=== PATIENT | male | born 1945 | race Caucasian/White ===

== ENCOUNTER 2023-03-19 11:06 | Inpatient (IN) | payer MEDICARE, SELFPAY ==
[2023-03-19 12:21] LABS: #Eosinphils 0.1 thou/uL (0.0-0.7); #Monocytes 0.7 thou/uL (0.11-0.59); #Neutrophils 3.6 thou/uL (1.40-6.50); %Basophils 0.3 % (0.0-1.0); %Eosinophils 2.2 % (0.0-10.0); %Lymphocytes 25.9 % (21.0-51.0); %Neutrophils 60.3 % (42.0-75.0); Hemoglobin 14.1 g/dL (14.0-18.0); Mean Corpuscular HGB CONC 31.5 g/dL (32.0-36.0); Mean Corpuscular Hemoglobin 29.9 pg (27.0-31.0); Mean Corpuscular Volume 94.9 fl (78.0-98.0); Mean Platelet Volume 10.3 fL (7.4-10.4); Platelet Count 106 10x3/uL (130-400); RBC Distribution Width 15.4 % (11.5-14.5); Red Blood Cell (RBC) Count 4.71 mill/uL (4.70-6.10)
[2023-03-19 12:32] LABS: INR-International Normal Ratio 1.2
[2023-03-19 12:40] LABS: ALT (SGPT) 13 U/L (8-55); AST (SGOT) 15 U/L (5-34); Albumin 3.7 g/dL (3.4-4.8); Alkaline Phosphatase 92 U/L (40-110); Anion Gap 14 mmol/L (10-20); BUN (Urea Nitrogen) 26 mg/dL (8.4-25.7); Bilirubin, Total 0.4 mg/dL (0.2-1.2); Calc. Creatinine Clearance 0 mL/min (70-130); Carbon Dioxide 20 mmol/L (23-31); Chloride 108 mmol/L (98-107); Estimated GFR 30; Globulin 2.4 g/dL (2.4-3.5); Glucose 116 mg/dL (83-110); Potassium 4.6 mmol/L (3.5-5.1); Protein, Total 6.1 g/dL (5.8-8.1); Sodium 137 mmol/L (136-145)
[2023-03-19 12:46] LABS: Anisocytosis SLIGHT = 6-15 cells HPF (0-5); Burr Cells SLIGHT = 2-5 cells HPF (0-1); Large Platelets 2.9 % (0-5); Macrocytosis SLIGHT = 6-15 cells HPF (0-5); Platelet Adequacy Comment Platelets Decreased; Poikilocytosis MARKED = >30 cells HPF (0-5)
[2023-03-19] MEDS ORDERED: Iopamidol-370 76% 500 ML MDV (1 ML CHARGE) ONE (13:23)
[2023-03-19] MEDS ORDERED: Sodium Chloride 0.9% 1,000 ML IV SCH (14:30)
[2023-03-19] MEDS: Apixaban 2.5 MG TAB PO SCH (23:35)
[2023-03-19] MEDS: Atorvastatin Calcium 40 MG TAB PO SCH (23:36)
[2023-03-20 02:16] VITALS: BMI 23.9
[2023-03-20 05:33] LABS: #Eosinphils 0.2 thou/uL (0.0-0.7); #Monocytes 0.8 thou/uL (0.11-0.59); #Neutrophils 6.1 thou/uL (1.40-6.50); %Basophils 0.2 % (0.0-1.0); %Eosinophils 2.3 % (0.0-10.0); %Lymphocytes 17.5 % (21.0-51.0); %Monocytes 9.6 % (0.0-10.0); %Neutrophils 70.1 % (42.0-75.0); Hemoglobin 14.7 g/dL (14.0-18.0); Mean Corpuscular HGB CONC 32.6 g/dL (32.0-36.0); Mean Corpuscular Hemoglobin 29.8 pg (27.0-31.0); Mean Platelet Volume 10.4 fL (7.4-10.4); RBC Distribution Width 15.3 % (11.5-14.5); Red Blood Cell (RBC) Count 4.94 mill/uL (4.70-6.10); White Blood Cell (WBC) Count 8.8 10x3/uL (4.8-10.8)
[2023-03-20 06:01] LABS: ALT (SGPT) 13 U/L (8-55); AST (SGOT) 17 U/L (5-34); Albumin 3.9 g/dL (3.4-4.8); Alkaline Phosphatase 96 U/L (40-110); Anion Gap 13 mmol/L (10-20); BUN (Urea Nitrogen) 20 mg/dL (8.4-25.7); Bilirubin, Total 0.6 mg/dL (0.2-1.2); Calc. Creatinine Clearance 37 mL/min (70-130); Calcium 8.9 mg/dL (7.8-10.44); Carbon Dioxide 18 mmol/L (23-31); Cardiac Risk 5.6 (Less than 4.5); Chloride 110 mmol/L (98-107); Cholesterol 157 mg/dl (< 200 Desired); Estimated GFR 38; Globulin 2.6 g/dL (2.4-3.5); Glucose 93 mg/dL (83-110); HDL Cholesterol 28 mg/dL (>60 Neg Risk); LDL Cholesterol, Calculated 102 mg/dL; Potassium 4.2 mmol/L (3.5-5.1); Protein, Total 6.5 g/dL (5.8-8.1); Sodium 137 mmol/L (136-145); Triglycerides 137 mg/dL (Less than 150)
[2023-03-20 06:26] LABS: Mean Corpuscular Volume 91.3 fl (78.0-98.0); Platelet Count 102 10x3/uL (130-400)
[2023-03-20] MEDS ORDERED: Ondansetron PF 4 MG/2 ML Vial IVP PRN (11:27)
[2023-03-20] MEDS: Aspirin 81 mg Enteric Coated Tablet PO SCH (12:53)
[2023-03-20] MEDS: Apixaban 2.5 MG TAB PO SCH ×2 (12:55→19:53)
[2023-03-20] MEDS: Lactated Ringer's 1,000 ML IV SCH (14:44)
[2023-03-20 16:12] LABS: Troponin I 0.038 ng/mL (< 0.028)
[2023-03-20] MEDS: Atorvastatin Calcium 40 MG TAB PO SCH (19:53)
[2023-03-21] MEDS: Lactated Ringer's 1,000 ML IV SCH ×2 (04:46→20:46)
[2023-03-21 05:04] LABS: #Eosinphils 0.1 thou/uL (0.0-0.7); #Neutrophils 5.8 thou/uL (1.40-6.50); %Basophils 0.2 % (0.0-1.0); %Eosinophils 0.8 % (0.0-10.0); %Lymphocytes 20.4 % (21.0-51.0); %Neutrophils 67.4 % (42.0-75.0); Mean Corpuscular HGB CONC 32.1 g/dL (32.0-36.0); Mean Corpuscular Hemoglobin 29.4 pg (27.0-31.0); Mean Corpuscular Volume 91.6 fl (78.0-98.0); Mean Platelet Volume 10.4 fL (7.4-10.4); Platelet Count 103 10x3/uL (130-400); Red Blood Cell (RBC) Count 5.11 mill/uL (4.70-6.10); White Blood Cell (WBC) Count 8.7 10x3/uL (4.8-10.8)
[2023-03-21 05:27] LABS: Anion Gap 15 mmol/L (10-20); BUN (Urea Nitrogen) 19 mg/dL (8.4-25.7); Calc. Creatinine Clearance 39 mL/min (70-130); Calcium 8.8 mg/dL (7.8-10.44); Carbon Dioxide 19 mmol/L (23-31); Chloride 108 mmol/L (98-107); Estimated GFR 39; Glucose 82 mg/dL (83-110); Magnesium 1.8 mg/dL (1.6-2.6); Potassium 4.3 mmol/L (3.5-5.1); Sodium 138 mmol/L (136-145)
[2023-03-21] MEDS: Apixaban 2.5 MG TAB PO SCH ×2 (12:24→20:43)
[2023-03-21] MEDS: Aspirin 81 mg Enteric Coated Tablet PO SCH (12:25)
[2023-03-21] MEDS: Atorvastatin Calcium 40 MG TAB PO SCH (20:44)
[2023-03-22] MEDS: Scopolamine 1.5 mg/72 hour Patch TOP SCH (04:23)
[2023-03-22 05:00] LABS: #Eosinphils 0.1 thou/uL (0.0-0.7); #Neutrophils 6.1 thou/uL (1.40-6.50); %Basophils 0.3 % (0.0-1.0); %Eosinophils 0.6 % (0.0-10.0); %Lymphocytes 18.3 % (21.0-51.0); %Monocytes 11.3 % (0.0-10.0); %Neutrophils 69.2 % (42.0-75.0); Hemoglobin 15.7 g/dL (14.0-18.0); Mean Corpuscular HGB CONC 32.3 g/dL (32.0-36.0); Mean Corpuscular Hemoglobin 29.8 pg (27.0-31.0); Mean Corpuscular Volume 92.2 fl (78.0-98.0); Mean Platelet Volume 10.6 fL (7.4-10.4); Red Blood Cell (RBC) Count 5.27 mill/uL (4.70-6.10); White Blood Cell (WBC) Count 8.8 10x3/uL (4.8-10.8)
[2023-03-22 05:16] LABS: Platelet Count 114 10x3/uL (130-400)
[2023-03-22 05:23] LABS: Anion Gap 18 mmol/L (10-20); BUN (Urea Nitrogen) 23 mg/dL (8.4-25.7); Calc. Creatinine Clearance 43 mL/min (70-130); Carbon Dioxide 17 mmol/L (23-31); Chloride 107 mmol/L (98-107); Estimated GFR 45; Glucose 75 mg/dL (83-110); Potassium 4.3 mmol/L (3.5-5.1); Sodium 138 mmol/L (136-145)
[2023-03-22] MEDS: Apixaban 2.5 MG TAB PO SCH (08:45)
[2023-03-22] MEDS: Aspirin 81 mg Enteric Coated Tablet PO SCH (08:46)
[2023-03-22] MEDS: Lactated Ringer's 1,000 ML IV SCH (10:47)
[2023-03-22] MEDS: Atorvastatin Calcium 40 MG TAB PO SCH (21:31)
[2023-03-23] MEDS: Lactated Ringer's 1,000 ML IV SCH (00:17)
[2023-03-23 05:42] LABS: #Monocytes 1.2 thou/uL (0.11-0.59); #Neutrophils 6.4 thou/uL (1.40-6.50); %Basophils 0.2 % (0.0-1.0); %Eosinophils 0.4 % (0.0-10.0); %Lymphocytes 18.8 % (21.0-51.0); %Neutrophils 67.3 % (42.0-75.0); Hemoglobin 15.5 g/dL (14.0-18.0); Mean Corpuscular HGB CONC 32.6 g/dL (32.0-36.0); Mean Corpuscular Hemoglobin 29.7 pg (27.0-31.0); Mean Platelet Volume 10.5 fL (7.4-10.4); Platelet Count 111 10x3/uL (130-400); RBC Distribution Width 14.7 % (11.5-14.5); Red Blood Cell (RBC) Count 5.22 mill/uL (4.70-6.10); White Blood Cell (WBC) Count 9.5 10x3/uL (4.8-10.8)
[2023-03-23 06:12] LABS: Anion Gap 19 mmol/L (10-20); BUN (Urea Nitrogen) 27 mg/dL (8.4-25.7); Calc. Creatinine Clearance 43 mL/min (70-130); Calcium 8.6 mg/dL (7.8-10.44); Carbon Dioxide 15 mmol/L (23-31); Chloride 107 mmol/L (98-107); Estimated GFR 45; Glucose 76 mg/dL (83-110); Potassium 4.3 mmol/L (3.5-5.1); Sodium 137 mmol/L (136-145)
[2023-03-23] MEDS ORDERED: Sodium Bicarbonate 100 MEQ in Dextrose 5% in Water 1,000 ML IV SCH (08:30)
[2023-03-23] MEDS: Aspirin 81 mg Enteric Coated Tablet PO SCH (09:31)
[2023-03-23] MEDS ORDERED: Sodium Chloride 0.9% 100 ML ONE (11:19)
[2023-03-23] MEDS ORDERED: CEFAZOLIN 2 GM VIAL ONE (11:19)
[2023-03-23] MEDS ORDERED: Iopamidol-370 76% 500 ML MDV (1 ML CHARGE) ONE (11:27)
[2023-03-23] MEDS ORDERED: Lidocaine 1% PF 5 ML VIAL ONE (11:29)
[2023-03-23] MEDS ORDERED: PROPOFOL 200 MG/20 ML VIAL ONE (11:29)
[2023-03-23] MEDS ORDERED: Ondansetron HCl/PF 4 MG/2 ML Vial IVP PRN (12:05)
[2023-03-23] MEDS ORDERED: Pantoprazole 40 MG VIAL IVP SCH (13:00)
[2023-03-23 14:46] LABS: Anion Gap 20 mmol/L (10-20); BUN (Urea Nitrogen) 27 mg/dL (8.4-25.7); Calc. Creatinine Clearance 46 mL/min (70-130); Calcium 8.9 mg/dL (7.8-10.44); Carbon Dioxide 16 mmol/L (23-31); Chloride 106 mmol/L (98-107); Estimated GFR 48; Glucose 79 mg/dL (83-110); Potassium 4.5 mmol/L (3.5-5.1); Sodium 137 mmol/L (136-145)
[2023-03-23] MEDS: Gabapentin 300 MG CAP PO SCH (21:20)
[2023-03-23] MEDS: Atorvastatin Calcium 10 MG TAB PO SCH (21:20)
[2023-03-23] MEDS: Apixaban 2.5 MG TAB PER TUBE SCH (21:20)
[2023-03-23] MEDS: Calcium Carbonate + Vit D 250 MG TAB PO SCH (21:20)
[2023-03-23] MEDS: Atorvastatin Calcium 40 MG TAB PO SCH (21:20)
[2023-03-23] MEDS: Multivit, Therapeutic 1 TAB PO SCH (21:21)
[2023-03-23] MEDS: Pantoprazole 40 MG VIAL IVP SCH (21:21)
[2023-03-24 04:59] LABS: #Eosinphils 0.1 thou/uL (0.0-0.7); #Monocytes 1.1 thou/uL (0.11-0.59); #Neutrophils 6.2 thou/uL (1.40-6.50); %Basophils 0.2 % (0.0-1.0); %Lymphocytes 17.3 % (21.0-51.0); %Monocytes 12.5 % (0.0-10.0); %Neutrophils 68.8 % (42.0-75.0); Hemoglobin 14.3 g/dL (14.0-18.0); Mean Corpuscular HGB CONC 32.9 g/dL (32.0-36.0); Mean Corpuscular Hemoglobin 29.3 pg (27.0-31.0); Mean Corpuscular Volume 89.1 fl (78.0-98.0); Mean Platelet Volume 10.2 fL (7.4-10.4); RBC Distribution Width 14.8 % (11.5-14.5); Red Blood Cell (RBC) Count 4.88 mill/uL (4.70-6.10)
[2023-03-24 05:23] LABS: Anion Gap 12 mmol/L (10-20); BUN (Urea Nitrogen) 30 mg/dL (8.4-25.7); Calc. Creatinine Clearance 40 mL/min (70-130); Calcium 8.4 mg/dL (7.8-10.44); Carbon Dioxide 23 mmol/L (23-31); Chloride 104 mmol/L (98-107); Estimated GFR 41; Glucose 132 mg/dL (83-110); Potassium 3.3 mmol/L (3.5-5.1); Sodium 136 mmol/L (136-145)
[2023-03-24 05:32] LABS: Platelet Count 115 10x3/uL (130-400)
[2023-03-24] MEDS ORDERED: Potassium Bicarbonate/Cit Ac 20 MEQ TAB PER TUBE SCH (08:30)
[2023-03-24] MEDS: Aspirin Chewable 81 MG TAB PO SCH (09:57)
[2023-03-24] MEDS: Pantoprazole 40 MG VIAL IVP SCH (09:58)
[2023-03-24] MEDS: Calcium Carbonate + Vit D 250 MG TAB PO SCH ×2 (09:58→21:42)
[2023-03-24] MEDS: Ezetimibe 10 MG TAB PO SCH (09:58)
[2023-03-24] MEDS: Apixaban 2.5 MG TAB PER TUBE SCH ×2 (09:58→21:42)
[2023-03-24] MEDS: Gabapentin 300 MG CAP PO SCH ×2 (09:58→21:42)
[2023-03-24] MEDS: Docusate 100 MG CAP PO SCH (09:59)
[2023-03-24] MEDS: Calcium Polycarbophil 625 MG TAB PO SCH (10:02)
[2023-03-24] MEDS: Carvedilol 3.125 MG TAB PO SCH (17:06)
[2023-03-24] MEDS ORDERED: Lansoprazole 3 MG/ML ORAL SUSPENSION PER TUBE SCH (21:00)
[2023-03-24] MEDS: Atorvastatin Calcium 10 MG TAB PO SCH (21:42)
[2023-03-24] MEDS: Multivit, Therapeutic 1 TAB PO SCH (21:42)
[2023-03-24] MEDS ORDERED: Lansoprazole 15 MG/5 ML (BATCHED)UDCUP PER TUBE SCH (22:00)
[2023-03-25 05:22] LABS: #Eosinphils 0.1 thou/uL (0.0-0.7); #Monocytes 1.5 thou/uL (0.11-0.59); #Neutrophils 7.1 thou/uL (1.40-6.50); %Basophils 0.2 % (0.0-1.0); %Eosinophils 1.2 % (0.0-10.0); %Lymphocytes 15.9 % (21.0-51.0); %Monocytes 14.2 % (0.0-10.0); %Neutrophils 68.2 % (42.0-75.0); Hemoglobin 14.3 g/dL (14.0-18.0); Mean Corpuscular HGB CONC 32.6 g/dL (32.0-36.0); Mean Corpuscular Hemoglobin 29.5 pg (27.0-31.0); Mean Corpuscular Volume 90.3 fl (78.0-98.0); Mean Platelet Volume 10.8 fL (7.4-10.4); RBC Distribution Width 14.9 % (11.5-14.5); Red Blood Cell (RBC) Count 4.85 mill/uL (4.70-6.10); White Blood Cell (WBC) Count 10.5 10x3/uL (4.8-10.8)
[2023-03-25 05:30] LABS: Platelet Count 109 10x3/uL (130-400)
[2023-03-25 05:47] LABS: Anion Gap 14 mmol/L (10-20); BUN (Urea Nitrogen) 33 mg/dL (8.4-25.7); Calc. Creatinine Clearance 37 mL/min (70-130); Calcium 9.1 mg/dL (7.8-10.44); Carbon Dioxide 26 mmol/L (23-31); Chloride 98 mmol/L (98-107); Estimated GFR 37; Glucose 108 mg/dL (83-110); Potassium 3.8 mmol/L (3.5-5.1); Sodium 134 mmol/L (136-145)
[2023-03-25] MEDS: Scopolamine 1.5 mg/72 hour Patch TOP SCH (06:04)
[2023-03-25] MEDS: Gabapentin 300 MG CAP PO SCH (10:04)
[2023-03-25] MEDS: Aspirin Chewable 81 MG TAB PO SCH (10:04)
[2023-03-25] MEDS: Docusate 100 MG CAP PO SCH (10:05)
[2023-03-25] MEDS: Carvedilol 3.125 MG TAB PO SCH ×2 (10:05→17:31)
[2023-03-25] MEDS: Calcium Polycarbophil 625 MG TAB PO SCH (10:05)
[2023-03-25] MEDS: Apixaban 2.5 MG TAB PER TUBE SCH (10:05)
[2023-03-25] MEDS: Ezetimibe 10 MG TAB PO SCH (10:05)
[2023-03-25] MEDS: Calcium Carbonate + Vit D 250 MG TAB PO SCH (10:06)
[2023-03-25 15:50] VITALS: BP 142/58; TEMP 98
[2023-03-25] MEDS ORDERED: Lansoprazole 15 MG/5 ML (BATCHED)UDCUP PER TUBE SCH (21:00)
== END 2023-03-25 18:06 | disposition home or self-care (01) | DRG 65 ==
LOC: ERS 11:06 → ERHOLD 13:17 → OBSVTOIN 17:57 → 2SE 22:31
PROVIDERS: ADMIT Internal Medicine Nephrology; ATTEND Internal Medicine
PROC: 4A10X4Z Monitoring of Central Nervous Electrical Activity, External Approach (ICD-10-PCS; 2023-03-20)
PROC: 0DH63UZ Insertion of Feeding Device into Stomach, Percutaneous Approach (ICD-10-PCS; principal; 2023-03-23)
DX: I63.9 Cerebral infarction, unspecified (principal); G81.91 Hemiplegia, unspecified affecting right dominant side; I50.20 Unspecified systolic (congestive) heart failure; N17.9 Acute kidney failure, unspecified; I13.0 Hypertensive heart and chronic kidney disease with heart failure and stage 1 through stage 4 chronic kidney disease, or unspecified chronic kidney disease; N18.30 Chronic kidney disease, stage 3 unspecified; I48.91 Unspecified atrial fibrillation; F17.210 Nicotine dependence, cigarettes, uncomplicated; I25.10 Atherosclerotic heart disease of native coronary artery without angina pectoris; R13.12 Dysphagia, oropharyngeal phase; Z79.01 Long term (current) use of anticoagulants; Z79.82 Long term (current) use of aspirin; Z86.73 Personal history of transient ischemic attack (TIA), and cerebral infarction without residual deficits; I25.2 Old myocardial infarction; Z95.1 Presence of aortocoronary bypass graft; Z95.810 Presence of automatic (implantable) cardiac defibrillator
CPT/HCPCS: 36415; 36416; 70450; 70496; 70498; 71045; 74150; 76770; 80048; 80053; 80061; 82553; 83735; 84443; 84484; 85025; 85610; 85730; 93005; 93010; 93306; 95816; 95819; 95957; 96360; 96361; 96374; C9113; G0378; J2405; J2704; J3490; J7050; J7070; J7120; Q9967

== ENCOUNTER 2023-05-18 16:31 | Inpatient (IN) | payer MEDICARE ==
[2023-05-18 17:58] LABS: #Monocytes 1.6 thou/uL (0.11-0.59); #Neutrophils 11.7 thou/uL (1.40-6.50); %Basophils 0.1 % (0.0-1.0); %Eosinophils 0.1 % (0.0-10.0); %Lymphocytes 8.7 % (21.0-51.0); %Monocytes 10.9 % (0.0-10.0); %Neutrophils 79.8 % (42.0-75.0); Hematocrit 42.8 % (42.0-52.0); Hemoglobin 13.6 g/dL (14.0-18.0); Mean Corpuscular HGB CONC 31.8 g/dL (32.0-36.0); Mean Corpuscular Hemoglobin 29.8 pg (27.0-31.0); Mean Corpuscular Volume 93.9 fl (78.0-98.0); Mean Platelet Volume 10.2 fL (7.4-10.4); Platelet Count 119 10x3/uL (130-400); RBC Distribution Width 15.8 % (11.5-14.5); Red Blood Cell (RBC) Count 4.56 mill/uL (4.70-6.10); White Blood Cell (WBC) Count 14.6 10x3/uL (4.8-10.8)
[2023-05-18 18:25] LABS: Troponin I 0.038 ng/mL (< 0.028)
[2023-05-18 18:27] LABS: ALT (SGPT) 23 U/L (8-55); AST (SGOT) 22 U/L (5-34); Albumin 3.3 g/dL (3.4-4.8); Alkaline Phosphatase 131 U/L (40-110); Anion Gap 14 mmol/L (10-20); Bilirubin, Total 0.9 mg/dL (0.2-1.2); CK (CPK) 18 U/L (30-200); Calc. Creatinine Clearance 0 mL/min (70-130); Calcium 9.3 mg/dL (7.8-10.44); Carbon Dioxide 24 mmol/L (23-31); Chloride 104 mmol/L (98-107); Estimated GFR 32; Globulin 2.6 g/dL (2.4-3.5); Glucose 96 mg/dL (83-110); Magnesium 1.7 mg/dL (1.6-2.6); Potassium 3.9 mmol/L (3.5-5.1); Protein, Total 5.9 g/dL (5.8-8.1); Sodium 138 mmol/L (136-145)
[2023-05-18 18:29] LABS: BUN (Urea Nitrogen) 26 mg/dL (8.4-25.7)
[2023-05-18 19:04] LABS: SARS-CoV-2 NAA Rapid Test Not Detected (NotDetected)
[2023-05-18] MEDS ORDERED: Cefepime 1 GM VIAL ONE (19:09)
[2023-05-18] MEDS ORDERED: LevoFLOXacin 750 mg/D5W 150 ml Premix Bag ONE (20:09)
[2023-05-18 20:53] LABS: Bacteria/HPF 3+ HPF (None Seen); Bilirubin Negative (Negative); Blood, Urine Negative (Negative); CAUTI Indications for Culture Fever or rigors; Clarity Turbid (Clear); Glucose, Urine (Dipstick) Normal (Negative); Ketone, Urine Negative (Negative); Leukocyte 500 Leu/uL (Negative); Nitrite Negative (Negative); Protein, Urine (Dipstick) 30 mg/dL (Neg-Trace); RBC/HPF 0-3 HPF (0-3); Squamous Epithelial None Seen HPF (0-3); Urobilinogen Normal mg/dL (Less than 2); WBC/HPF Greater than 50 HPF (0-3); pH, Urine 6.5 (5.0-9.0)
[2023-05-18 20:54] LABS: Urine Culture Reflex Yes Yes
[2023-05-18] MEDS ORDERED: Guaifenesin DM 100-10/5 ML UDCUP PER TUBE PRN (22:09)
[2023-05-18] MEDS ORDERED: Calcium Carbonate 500 MG ChewTAB PER TUBE PRN (22:09)
[2023-05-18] MEDS ORDERED: Acetaminophen 325 MG TAB PER TUBE PRN (22:09)
[2023-05-18] MEDS ORDERED: Ipratropium/Albuterol 3 ML NEB NEB PRN (22:17)
[2023-05-18] MEDS ORDERED: Sodium Chloride 0.9% 1,000 ML IV SCH (22:45)
[2023-05-19 05:50] LABS: #Eosinphils 0.1 thou/uL (0.0-0.7); #Neutrophils 8.4 thou/uL (1.40-6.50); %Basophils 0.2 % (0.0-1.0); %Eosinophils 0.6 % (0.0-10.0); %Lymphocytes 12.6 % (21.0-51.0); %Monocytes 9.5 % (0.0-10.0); %Neutrophils 76.7 % (42.0-75.0); Hematocrit 37.2 % (42.0-52.0); Mean Corpuscular HGB CONC 32.3 g/dL (32.0-36.0); Mean Platelet Volume 10.4 fL (7.4-10.4); RBC Distribution Width 15.7 % (11.5-14.5)
[2023-05-19 06:04] LABS: Anion Gap 11 mmol/L (10-20); BUN (Urea Nitrogen) 26 mg/dL (8.4-25.7); Calc. Creatinine Clearance 35 mL/min (70-130); Calcium 8.7 mg/dL (7.8-10.44); Carbon Dioxide 24 mmol/L (23-31); Chloride 109 mmol/L (98-107); Estimated GFR 36; Glucose 116 mg/dL (83-110); Potassium 3.8 mmol/L (3.5-5.1); Sodium 140 mmol/L (136-145)
[2023-05-19] MEDS ORDERED: Piperacillin/Tazobactam 3.375 GM VIAL ONE (06:09)
[2023-05-19 06:13] LABS: Platelet Count 105 10x3/uL (130-400)
[2023-05-19] MEDS ORDERED: Piperacillin/Tazobactam 3.375 GM in Sodium Chloride 0.9% 100 ML IVPB SCH (07:00)
[2023-05-19] MEDS ORDERED: Doxycycline 100 MG in Sodium Chloride 0.9% 100 ML IVPB SCH (07:00)
[2023-05-19 10:52] VITALS: BMI 20.2
[2023-05-19] MEDS ORDERED: Cetirizine HCl 10 MG TAB PO SCH (11:30)
[2023-05-19] MEDS ORDERED: hydrALAZINE 20 MG/ML VIAL SLOW IVP PRN (11:31)
[2023-05-19] MEDS: Piperacillin/Tazobactam 3.375 GM in Sodium Chloride 0.9% 100 ML IVPB SCH ×2 (11:50→17:25)
[2023-05-19] MEDS: Carvedilol 3.125 MG TAB PO SCH (17:25)
[2023-05-19] MEDS: Ondansetron PF 4 MG/2 ML Vial IVP PRN (19:52)
[2023-05-19] MEDS ORDERED: KRILL OIL 500 MG PO SCH ×2 (21:00)
[2023-05-19] MEDS ORDERED: Non-Formulary Item 1 EACH (Omeprazole [Omeprazole] 20 MG Tablet.Dr) PO SCH (21:00)
[2023-05-19] MEDS ORDERED: Non-Formulary Item 1 EACH (Lovastatin [Lovastatin] 40 MG Tablet) PO SCH (21:00)
[2023-05-19] MEDS ORDERED: Non-Formulary Item 1 EACH (Mv-Min/Folic/K1/Lycopen/Lutein [Centrum Silver Men Tablet] 1 E PO SCH (21:00)
[2023-05-19] MEDS ORDERED: Calcium Carbonate + Vit D 250 MG TAB PO SCH (21:00)
[2023-05-19] MEDS: Gabapentin 300 MG CAP PO SCH (21:35)
[2023-05-19] MEDS: Calcium Carbonate + Vit D 250 MG TAB PO SCH (21:35)
[2023-05-19] MEDS: Atorvastatin Calcium 10 MG TAB PO SCH (21:35)
[2023-05-19] MEDS: Multivitamin W/ Minerals 1 TAB PO SCH (21:35)
[2023-05-19] MEDS: Apixaban 2.5 MG TAB PO SCH (21:35)
[2023-05-19] MEDS: Montelukast Sodium 10 mg Tablet PO SCH (21:36)
[2023-05-19] MEDS: Loratadine 10 MG TAB PO SCH (21:36)
[2023-05-19] MEDS: Doxycycline 100 MG in Sodium Chloride 0.9% 100 ML IVPB SCH (21:36)
[2023-05-19] MEDS: buPROPion 75 MG TAB PO SCH (21:37)
[2023-05-20] MEDS: Piperacillin/Tazobactam 3.375 GM in Sodium Chloride 0.9% 100 ML IVPB SCH ×3 (04:28→17:25)
[2023-05-20 05:05] LABS: #Eosinphils 0.1 thou/uL (0.0-0.7); #Monocytes 1.2 thou/uL (0.11-0.59); %Basophils 0.2 % (0.0-1.0); %Eosinophils 1.4 % (0.0-10.0); %Lymphocytes 15.4 % (21.0-51.0); %Monocytes 13.3 % (0.0-10.0); %Neutrophils 69.4 % (42.0-75.0); Hematocrit 37.2 % (42.0-52.0); Hemoglobin 11.9 g/dL (14.0-18.0); Mean Corpuscular Volume 93.7 fl (78.0-98.0); Mean Platelet Volume 10.6 fL (7.4-10.4); Platelet Count 96 10x3/uL (130-400); RBC Distribution Width 15.9 % (11.5-14.5); Red Blood Cell (RBC) Count 3.97 mill/uL (4.70-6.10); White Blood Cell (WBC) Count 8.6 10x3/uL (4.8-10.8)
[2023-05-20 05:37] LABS: Anion Gap 13 mmol/L (10-20); BUN (Urea Nitrogen) 24 mg/dL (8.4-25.7); Calc. Creatinine Clearance 39 mL/min (70-130); Calcium 8.7 mg/dL (7.8-10.44); Carbon Dioxide 22 mmol/L (23-31); Chloride 108 mmol/L (98-107); Estimated GFR 46; Glucose 93 mg/dL (83-110); Magnesium 1.6 mg/dL (1.6-2.6); Potassium 3.9 mmol/L (3.5-5.1); Sodium 139 mmol/L (136-145)
[2023-05-20] MEDS ORDERED: Non-Formulary Item 1 EACH (Aspirin [Vazalore] 81 MG Capsule) PO SCH (09:00)
[2023-05-20] MEDS ORDERED: Non-Formulary Item 1 EACH (Docusate Sodium [Stool Softener] 100 MG Tablet) PO SCH (09:00)
[2023-05-20] MEDS ORDERED: Magnesium 2 GM/50 ML(in water) 2 GM in Premix Bag 1 BAG IVPB SCH (10:00)
[2023-05-20] MEDS: Aspirin 81 mg Enteric Coated Tablet PO SCH (10:03)
[2023-05-20] MEDS: Doxycycline 100 MG in Sodium Chloride 0.9% 100 ML IVPB SCH ×2 (10:03→20:51)
[2023-05-20] MEDS: Carvedilol 3.125 MG TAB PO SCH ×2 (10:03→16:34)
[2023-05-20] MEDS: buPROPion 75 MG TAB PO SCH ×2 (10:03→20:50)
[2023-05-20] MEDS: Docusate 100 MG CAP PO SCH (10:04)
[2023-05-20] MEDS: Calcium Polycarbophil 625 MG TAB PO SCH (10:04)
[2023-05-20] MEDS: Apixaban 2.5 MG TAB PO SCH ×2 (10:04→20:51)
[2023-05-20] MEDS: Gabapentin 300 MG CAP PO SCH ×2 (10:04→20:50)
[2023-05-20] MEDS: Ezetimibe 10 MG TAB PO SCH (10:04)
[2023-05-20] MEDS: Calcium Carbonate + Vit D 250 MG TAB PO SCH ×2 (10:04→20:50)
[2023-05-20] MEDS: Ondansetron PF 4 MG/2 ML Vial IVP PRN (12:10)
[2023-05-20] MEDS: Multivitamin W/ Minerals 1 TAB PO SCH (20:50)
[2023-05-20] MEDS: Atorvastatin Calcium 10 MG TAB PO SCH (20:50)
[2023-05-20] MEDS: Montelukast Sodium 10 mg Tablet PO SCH (20:51)
[2023-05-20] MEDS: Loratadine 10 MG TAB PO SCH (20:51)
[2023-05-21] MEDS: Piperacillin/Tazobactam 3.375 GM in Sodium Chloride 0.9% 100 ML IVPB SCH ×3 (02:22→20:25)
[2023-05-21 07:11] LABS: #Eosinphils 0.2 thou/uL (0.0-0.7); #Monocytes 0.8 thou/uL (0.11-0.59); #Neutrophils 4.3 thou/uL (1.40-6.50); %Basophils 0.1 % (0.0-1.0); %Eosinophils 2.8 % (0.0-10.0); %Monocytes 12.5 % (0.0-10.0); %Neutrophils 63.2 % (42.0-75.0); Hematocrit 36.4 % (42.0-52.0); Hemoglobin 11.5 g/dL (14.0-18.0); Mean Corpuscular HGB CONC 31.6 g/dL (32.0-36.0); Mean Corpuscular Hemoglobin 29.6 pg (27.0-31.0); Mean Corpuscular Volume 93.6 fl (78.0-98.0); Mean Platelet Volume 10.2 fL (7.4-10.4); Platelet Count 94 10x3/uL (130-400); RBC Distribution Width 15.9 % (11.5-14.5); Red Blood Cell (RBC) Count 3.89 mill/uL (4.70-6.10); White Blood Cell (WBC) Count 6.7 10x3/uL (4.8-10.8)
[2023-05-21 07:32] LABS: Anion Gap 13 mmol/L (10-20); BUN (Urea Nitrogen) 22 mg/dL (8.4-25.7); Calc. Creatinine Clearance 39 mL/min (70-130); Calcium 8.4 mg/dL (7.8-10.44); Carbon Dioxide 22 mmol/L (23-31); Chloride 107 mmol/L (98-107); Estimated GFR 46; Glucose 88 mg/dL (83-110); Potassium 4.4 mmol/L (3.5-5.1); Sodium 138 mmol/L (136-145)
[2023-05-21] MEDS: Calcium Polycarbophil 625 MG TAB PO SCH (09:13)
[2023-05-21] MEDS: Carvedilol 3.125 MG TAB PO SCH ×2 (09:13→18:04)
[2023-05-21] MEDS: buPROPion 75 MG TAB PO SCH ×2 (09:13→20:25)
[2023-05-21] MEDS: Aspirin 81 mg Enteric Coated Tablet PO SCH (09:13)
[2023-05-21] MEDS: Calcium Carbonate + Vit D 250 MG TAB PO SCH ×2 (09:14→20:25)
[2023-05-21] MEDS: Ezetimibe 10 MG TAB PO SCH (09:14)
[2023-05-21] MEDS: Doxycycline 100 MG in Sodium Chloride 0.9% 100 ML IVPB SCH ×2 (09:14→20:46)
[2023-05-21] MEDS: Apixaban 2.5 MG TAB PO SCH ×2 (09:14→20:26)
[2023-05-21] MEDS: Gabapentin 300 MG CAP PO SCH ×2 (09:14→20:26)
[2023-05-21] MEDS: Docusate 100 MG CAP PO SCH (09:15)
[2023-05-21] MEDS: Sodium Chloride 0.9% 1,000 ML IV SCH (13:08)
[2023-05-21] MEDS: Montelukast Sodium 10 mg Tablet PO SCH (20:25)
[2023-05-21] MEDS: Multivitamin W/ Minerals 1 TAB PO SCH (20:25)
[2023-05-21] MEDS: Loratadine 10 MG TAB PO SCH (20:26)
[2023-05-21] MEDS: Atorvastatin Calcium 10 MG TAB PO SCH (20:26)
[2023-05-22] MEDS: Piperacillin/Tazobactam 3.375 GM in Sodium Chloride 0.9% 100 ML IVPB SCH ×3 (03:03→21:06)
[2023-05-22 06:22] LABS: #Eosinphils 0.2 thou/uL (0.0-0.7); #Monocytes 1.1 thou/uL (0.11-0.59); #Neutrophils 3.9 thou/uL (1.40-6.50); %Basophils 0.3 % (0.0-1.0); %Eosinophils 2.6 % (0.0-10.0); %Lymphocytes 20.3 % (21.0-51.0); %Monocytes 16.3 % (0.0-10.0); %Neutrophils 60.2 % (42.0-75.0); Hematocrit 36.5 % (42.0-52.0); Hemoglobin 11.7 g/dL (14.0-18.0); Mean Corpuscular HGB CONC 32.1 g/dL (32.0-36.0); Mean Corpuscular Hemoglobin 29.4 pg (27.0-31.0); Mean Corpuscular Volume 91.7 fl (78.0-98.0); Mean Platelet Volume 10.7 fL (7.4-10.4); Platelet Count 99 10x3/uL (130-400); RBC Distribution Width 15.7 % (11.5-14.5); Red Blood Cell (RBC) Count 3.98 mill/uL (4.70-6.10); White Blood Cell (WBC) Count 6.5 10x3/uL (4.8-10.8)
[2023-05-22 06:46] LABS: Anion Gap 13 mmol/L (10-20); BUN (Urea Nitrogen) 18 mg/dL (8.4-25.7); Calc. Creatinine Clearance 40 mL/min (70-130); Calcium 8.6 mg/dL (7.8-10.44); Carbon Dioxide 21 mmol/L (23-31); Chloride 105 mmol/L (98-107); Estimated GFR 47; Glucose 85 mg/dL (83-110); Potassium 4.2 mmol/L (3.5-5.1); Sodium 135 mmol/L (136-145)
[2023-05-22] MEDS: Doxycycline 100 MG in Sodium Chloride 0.9% 100 ML IVPB SCH ×2 (09:10→21:06)
[2023-05-22] MEDS: Docusate 100 MG CAP PO SCH (09:11)
[2023-05-22] MEDS: Gabapentin 300 MG CAP PO SCH ×2 (09:11→21:07)
[2023-05-22] MEDS: Ezetimibe 10 MG TAB PO SCH (09:11)
[2023-05-22] MEDS: Apixaban 2.5 MG TAB PO SCH ×2 (09:11→21:08)
[2023-05-22] MEDS: Aspirin 81 mg Enteric Coated Tablet PO SCH (09:13)
[2023-05-22] MEDS: Carvedilol 3.125 MG TAB PO SCH ×2 (09:13→17:11)
[2023-05-22] MEDS: Calcium Polycarbophil 625 MG TAB PO SCH (09:13)
[2023-05-22] MEDS: buPROPion 75 MG TAB PO SCH ×2 (09:13→21:06)
[2023-05-22] MEDS: Calcium Carbonate + Vit D 250 MG TAB PO SCH ×2 (11:33→21:06)
[2023-05-22] MEDS: Sodium Chloride 0.9% 1,000 ML IV SCH (12:11)
[2023-05-22] MEDS ORDERED: QUEtiapine 25 MG TAB PER TUBE SCH (21:00)
[2023-05-22] MEDS: Multivitamin W/ Minerals 1 TAB PO SCH (21:07)
[2023-05-22] MEDS: Loratadine 10 MG TAB PO SCH (21:08)
[2023-05-22] MEDS: Atorvastatin Calcium 10 MG TAB PO SCH (21:08)
[2023-05-22] MEDS: Montelukast Sodium 10 mg Tablet PO SCH (21:08)
[2023-05-23] MEDS: Piperacillin/Tazobactam 3.375 GM in Sodium Chloride 0.9% 100 ML IVPB SCH ×2 (03:20→11:58)
[2023-05-23] MEDS: Doxycycline 100 MG in Sodium Chloride 0.9% 100 ML IVPB SCH (09:10)
[2023-05-23] MEDS: Calcium Polycarbophil 625 MG TAB PO SCH (09:11)
[2023-05-23] MEDS: Docusate 100 MG CAP PO SCH (09:11)
[2023-05-23] MEDS: Calcium Carbonate + Vit D 250 MG TAB PO SCH (09:11)
[2023-05-23] MEDS: Aspirin 81 mg Enteric Coated Tablet PO SCH (09:11)
[2023-05-23] MEDS: Gabapentin 300 MG CAP PO SCH (09:11)
[2023-05-23] MEDS: Ezetimibe 10 MG TAB PO SCH (09:11)
[2023-05-23] MEDS: buPROPion 75 MG TAB PO SCH (09:12)
[2023-05-23] MEDS: Carvedilol 3.125 MG TAB PO SCH (09:12)
[2023-05-23] MEDS: Apixaban 2.5 MG TAB PO SCH (09:12)
[2023-05-23 09:34] LABS: #Eosinphils 0.2 thou/uL (0.0-0.7); #Monocytes 1.3 thou/uL (0.11-0.59); #Neutrophils 3.8 thou/uL (1.40-6.50); %Basophils 0.3 % (0.0-1.0); %Eosinophils 2.6 % (0.0-10.0); %Lymphocytes 23.5 % (21.0-51.0); %Monocytes 18.2 % (0.0-10.0); %Neutrophils 55.1 % (42.0-75.0); Hematocrit 38.8 % (42.0-52.0); Hemoglobin 12.4 g/dL (14.0-18.0); Mean Corpuscular Hemoglobin 29.7 pg (27.0-31.0); Mean Platelet Volume 10.6 fL (7.4-10.4); RBC Distribution Width 15.9 % (11.5-14.5); Red Blood Cell (RBC) Count 4.17 mill/uL (4.70-6.10); White Blood Cell (WBC) Count 6.9 10x3/uL (4.8-10.8)
[2023-05-23 09:37] LABS: Platelet Count 113 10x3/uL (130-400)
[2023-05-23 09:52] LABS: Anion Gap 13 mmol/L (10-20); BUN (Urea Nitrogen) 19 mg/dL (8.4-25.7); Calc. Creatinine Clearance 36 mL/min (70-130); Calcium 8.8 mg/dL (7.8-10.44); Carbon Dioxide 22 mmol/L (23-31); Chloride 106 mmol/L (98-107); Estimated GFR 42; Glucose 89 mg/dL (83-110); Potassium 4.2 mmol/L (3.5-5.1); Sodium 137 mmol/L (136-145)
[2023-05-23] MEDS: Sodium Chloride 0.9% 1,000 ML IV SCH (12:01)
[2023-05-23 12:17] VITALS: BP 100/64; TEMP 97.6
== END 2023-05-23 16:30 | disposition home health service (06) | DRG 871 ==
LOC: ERS 16:31 → 2NO 21:21 → ERHOLD 21:33 → 2NO 05-19 09:16 → SJJU 05-20 17:04
PROVIDERS: ADMIT Student in an Organized Health Care Education/Training Program; ATTEND Internal Medicine
DX: A41.9 Sepsis, unspecified organism (principal); J18.9 Pneumonia, unspecified organism; J69.0 Pneumonitis due to inhalation of food and vomit; N39.0 Urinary tract infection, site not specified; I69.351 Hemiplegia and hemiparesis following cerebral infarction affecting right dominant side; N17.9 Acute kidney failure, unspecified; R13.10 Dysphagia, unspecified; Z66 Do not resuscitate; B37.2 Candidiasis of skin and nail; Z79.01 Long term (current) use of anticoagulants; Z79.899 Other long term (current) drug therapy; Z79.82 Long term (current) use of aspirin; D63.1 Anemia in chronic kidney disease; N18.32 Chronic kidney disease, stage 3b; I48.0 Paroxysmal atrial fibrillation; I12.9 Hypertensive chronic kidney disease with stage 1 through stage 4 chronic kidney disease, or unspecified chronic kidney disease; L89.152 Pressure ulcer of sacral region, stage 2; F17.210 Nicotine dependence, cigarettes, uncomplicated; I69.320 Aphasia following cerebral infarction
CPT/HCPCS: 36415; 51701; 71045; 74230; 80048; 80053; 81001; 82550; 83735; 84484; 85025; 87040; 87077; 87086; 87186; 93005; 96365; 96366; 96367; 96375; J0692; J1956; J2405; J2543; J3475; J3490; J7050; U0002